=== PATIENT | male | born 1960 | race Caucasian/White ===

== ENCOUNTER 2018-01-27 14:48 | Emergency (ER) | payer OTHER ==
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
[2018-01-27] MEDS ORDERED: LET GEL TOPICAL 1 EA SYR TP ONE (15:13)
[2018-01-27] MEDS ORDERED: OXYCODONE/APAP 5/325 TAB PO ONE (16:31)
[2018-01-27 17:20] VITALS: BP 135/86
== END 2018-01-27 17:18 | disposition home or self-care (01) ==
DX: S43.102A Unspecified dislocation of left acromioclavicular joint, initial encounter (principal); S32.020A Wedge compression fracture of second lumbar vertebra, initial encounter for closed fracture; V18.0XXA Pedal cycle driver injured in noncollision transport accident in nontraffic accident, initial encounter; Y92.482 Bike path as the place of occurrence of the external cause